=== PATIENT | female | born 1955 | race Hispanic/Latino ===

== ENCOUNTER 2016-12-01 13:08 | Inpatient (IN) | payer MEDICARE ==
[2016-12-01 13:48] LABS: Hematocrit 32.6 % (30.3-42.9); Hemoglobin 10.7 gm/dl (10.1-14.3); Mean Corpuscular HGB Conc 33 % (30-34); Mean Corpuscular Hemoglobin 30 pg (28-32); Mean Corpuscular Volume 91 fl (79-97); Platelet Count 181 K/mm3 (140-440); Red Blood Count 3.58 M/mm3 (3.65-5.03); Red Cell Distribution Width 20.9 % (13.2-15.2); White Blood Count 6.4 K/mm3 (4.5-11.0)
[2016-12-01 13:56] LABS: Anion Gap 18 mmol/L; Blood Urea Nitrogen 18 mg/dL (7-17); Calcium 8.5 mg/dL (8.4-10.2); Carbon Dioxide 21 mmol/L (22-30); Chloride 103.9 mmol/L (98-107); Glucose 106 mg/dL (65-100); Potassium 4.3 mmol/L (3.6-5.0); Sodium 139 mmol/L (137-145)
--- NOTE | 2016-12-01 14:10 | XRay Report ---
Chest 2 views: History: Chest pain. Findings: Normal cardiomediastinal silhouette. Trachea is midline. No consolidation, pneumothorax or pleural effusion. Impression: No acute cardiopulmonary findings.
[2016-12-01] MEDS ORDERED: PROVENTIL IH ONE (14:22)
[2016-12-01] MEDS ORDERED: ATROVENT IH ONE (14:22)
[2016-12-01 14:26] LABS: Basophils % (Manual) 0 % (0.0-1.8); Blastocytes % (Manual) 0 %; Eosinophils % (Manual) 0 % (0.0-4.3)
[2016-12-01 14:27] LABS: Diff Status Complete; Polychromasia 1+; Stomatocytes 1+; Tear Drop Cells Few
[2016-12-01] MEDS ORDERED: DUONEB *Not for PRN Use IH ONE (20:09)
[2016-12-01] MEDS ORDERED: NORCO 5/325 PO ONE (20:09)
[2016-12-01] MEDS ORDERED: DELTASONE PO ONE (20:10)
--- NOTE | 2016-12-01 20:11 | Emergency Department Report ---
ED Chest Pain HPI - General Chief Complaint: Chest Pain Stated Complaint: GEORGE Time Seen by Provider: 12/01/16 19:35 Source: patient Mode of arrival: Ambulatory Limitations: Physical Limitation - History of Present Illness Initial Comments: 61-year-old female past medical history arthritis, COPD, smoker, HIV on HAART presents with complaint of intermittent left-sided chest pain since 11:30 AM this morning. Patient states that she had sharp crampy left-sided chest pain which lasted for several minutes at 11:30 AM. Experienced twice throughout the day with associated shortness of breath. Denies nausea vomiting or diaphoresis. Denies dysuria, increased urinary frequency, abdominal pain. Patient is awake alert and oriented 3 sitting on examination bed comfortably. Currently states she still feels somewhat short of breath. Denies any history of [place] in the past. Also complaining of acute on chronic bilateral knee pain secondary to her arthritis MD Complaint: chest pain Severity scale (0 -10): 1 - Related Data Previous Rx's Medication Instructions Recorded Last Taken Type Ondansetron [Zofran Odt] 4 mg PO Q6H PRN #12 tab.rapdis 01/15/16 Unknown Rx oxyCODONE /ACETAMINOPHEN [Percocet 1 tab PO Q6HR PRN #12 tablet 01/15/16 Unknown Rx 5/325] Allergies Allergy/AdvReac Type Severity Reaction Status Date / Time aspirin Allergy Unknown Verified 12/01/16 13:10 Heart Score - HEART Score History: Moderately suspicious EKG: Non-specific Age: 45-65 Risk factors: 1-2 risk factors Troponin: < normal limit HEART Score: 4 ED Review of Systems ROS: Stated complaint: GEORGE Other details as noted in HPI Constitutional: denies: chills, fever Eyes: denies: eye pain, eye discharge, vision change ENT: denies: ear pain, throat pain Respiratory: wheezing. denies: cough, shortness of breath Cardiovascular: chest pain. denies: palpitations Endocrine: no symptoms reported Gastrointestinal: denies: abdominal pain, nausea, diarrhea Genitourinary: denies: urgency, dysuria, discharge Musculoskeletal: as per HPI, arthralgia. denies: back pain, joint swelling Skin: denies: rash, lesions Neurological: denies: headache, weakness, paresthesias Psychiatric: denies: anxiety, depression Hematological/Lymphatic: denies: easy bleeding, easy bruising ED Past Medical Hx - Past Medical History Hx COPD: Yes Hx HIV: Yes - Surgical History Additional Surgical History: el hip replacements. x2 - Social History Smoking Status: Current Every Day Smoker Substance Use Type: None - Medications Home Medications: Home Medications Medication Instructions Recorded Confirmed Last Taken Type Ondansetron [Zofran Odt] 4 mg PO Q6H PRN #12 tab.rapdis 01/15/16 Unknown Rx oxyCODONE /ACETAMINOPHEN [Percocet 1 tab PO Q6HR PRN #12 tablet 01/15/16 Unknown Rx 5/325] ED Physical Exam - General Limitations: Physical Limitation General appearance: alert, in no apparent distress - Head Head exam: Present: atraumatic, normocephalic - Eye Eye exam: Present: normal appearance, PERRL, EOMI - ENT ENT exam: Present: mucous membranes moist - Neck Neck exam: Present: normal inspection - Respiratory Respiratory exam: Present: wheezes (minor wheezing bilateral lung bases). Absent: respiratory distress - Cardiovascular Cardiovascular Exam: Present: regular rate, normal rhythm. Absent: systolic murmur, diastolic murmur, rubs, gallop - GI/Abdominal GI/Abdominal exam: Present: soft, normal bowel sounds - Extremities Exam Extremities exam: Present: normal inspection - Back Exam Back exam: Present: normal inspection - Neurological Exam Neurological exam: Present: alert, oriented X3 - Psychiatric Psychiatric exam: Present: normal affect, normal mood - Skin Skin exam: Present: warm, dry, intact, normal color. Absent: rash ED Course Vital Signs 12/01/16 12/01/16 12/01/16 13:20 14:26 15:08 Temperature 98.9 F Pulse Rate 92 H Pulse Rate [ 88 92 H Posterior Bilateral Throughout] Respiratory 16 Rate Respiratory 20 20 Rate [Posterior Bilateral Throughout] Blood Pressure 144/87 Blood Pressure 144/87 [Right] O2 Sat by Pulse 99 Oximetry 12/01/16 12/01/16 12/01/16 15:20 17:41 19:00 Temperature 98.6 F 98.5 F Pulse Rate 78 80 Pulse Rate [ Posterior Bilateral Throughout] Respiratory 16 16 Rate Respiratory Rate [Posterior Bilateral Throughout] Blood Pressure Blood Pressure 140/87 138/76 [Right] O2 Sat by Pulse 98 99 98 Oximetry 12/01/16 20:10 Temperature Pulse Rate Pulse Rate [ Posterior Bilateral Throughout] Respiratory 20 Rate Respiratory Rate [Posterior Bilateral Throughout] Blood Pressure Blood Pressure [Right] O2 Sat by Pulse Oximetry APRYL score - Apryl Score Age > 65: (0) No Aspirin use within the Past 7 Days: (0) No 3 or more CAD Risk Factors: (0) No 2 or more Angina events in past 24 hrs: (1) Yes Known CAD with more than 50% Stenosis: (0) No Elevated Cardiac Markers: (0) No ST Deviation Greater than 0.5mm: (0) No APRYL Score: 1 ED Medical Decision Making - Lab Data Result diagrams: 12/01/16 13:24 12/01/16 13:24 - Medical Decision Making A/P: Left-sided anginal chest pain, shortness of breath, COPD exacerbation 1-nebulizer treatments, prednisone 40mg 2-162mg aspirin 3-chest x-ray unremarkable, troponin negative 3, EKG sinus rhythm 4- case discussed with Dr. Bishop and attending hospitalist will admit patient as patient has intermediate HEART score 4 points Moderate Score (4-6 points) Risk of MACE of 12-16.6%. 4-6: 12-16.6% risk of adverse cardiac event. In the HEART Score, these patients were admitted to the hospital. (11.6% retrospective ) (16.6% prospective) Critical care attestation.: If time is entered above; I have spent that time in minutes in the direct care of this critically ill patient, excluding procedure time. ED Disposition Clinical Impression: COPD exacerbation, Left sided chest pain, Angina at rest Disposition: OP ADMIT IP TO THIS HOSP Is pt being admited?: Yes Does the pt Need Aspirin: Yes Condition: Stable Instructions: Chronic Obstructive Pulmonary Disease (ED), Chest Pain (ED) Referrals: PRIMARY CARE,MD [Primary Care Provider] - 3-5 Days
[2016-12-01] MEDS ORDERED: BABY ASPIRIN PO ONE (20:15)
[2016-12-01 20:27] LABS: Creatine Kinase MB 5.9 ng/mL (0.0-4.0)
[2016-12-01 20:41] LABS: Bilirubin,Urine NEG (Negative); Blood,Urine NEG (Negative); Ketones,Urine NEG (Negative); Leukocyte Esterase,Urine NEG (Negative); Nitrite,Urine NEG (Negative); Protein,Urine <15 mg/dL mg/dL (Negative); RBC,Urine < 1.0 /HPF (0.0-6.0); Urobilinogen,Urine < 2.0 mg/dL (<2.0)
[2016-12-01] MEDS ORDERED: ZOFRAN ODT PO PRN (21:51)
[2016-12-01] MEDS ORDERED: PERCOCET 5/325 PO PRN ×2 (21:51→22:11)
[2016-12-01] MEDS ORDERED: MORPHINE IV PRN (21:53)
[2016-12-01] MEDS ORDERED: SODIUM CHLORIDE FLUSH SYRINGE 10 ML IV PRN (21:53)
--- NOTE | 2016-12-01 21:59 | History and Physical Report ---
History of Present Illness Date of examination: 12/01/16 Chief complaint: Chest pain History of present illness: 61-year-old female with past medical history significant for COPD, arthritis, HIV presented to the emergency department complaining of left-sided chest pain that started around 11 AM. Chest Pain as a squeezing, 10 out of 10, with no radiation, associated with shortness of breath. Patient has history of COPD and she is on steroids that has been discontinued a week ago. Patient's complaining swelling of the face and the leg that she associated with use of steroids. Patient didn't have any cardiac workup previously. Patient is admitted for further workup and management. REVIEW OF SYSTEMS: GENERAL: no weight change, no fatigue, no fever HEAD: no head ache EYES: no blurry vision, no acute visual loss EARS: no hearing loss, no discharge, no earache NOSE: no stuffiness, no sneezing, no discharge MOUTH, THROAT AND NECK: no bleeding gums, no sore throat, no swollen neck CARDIAC: As stated in the HPI. RESPIRATORY: As stated in the HPI. GI: no decreased appetite, no nausea, no vomiting, no dysphagia, no diarrhea, no constipation, no abdominal pain URINARY: no change in frequency, no urgency, no polyuria, no hematuria, no incontinence MUSCULOSKELETAL: Complaining bilateral knee pain. NEUROLOGIC: no loss of sensation/numbness, no tingling, no tremors, no weakness/ paralysis HEMATOLOGIC: no anemia, no easy bruising SKIN: no rashes ENDOCRINE: no heat/cold intolerance, no polyuria, no polydipsia, no thyroid problems, no diabetes PSYCHIATRIC: no anxiety, no depression, no suicidal ideations Past History Past Medical History: arthritis, hyperlipidemia, other (HIV) Past Surgical History: total hip replacement Social history: full code. denies: smoking, alcohol abuse, prescription drug abuse, IV drug use Family history: CAD (father and brother), stroke (brother) Medications and Allergies Allergies Allergy/AdvReac Type Severity Reaction Status Date / Time aspirin Allergy Unknown Verified 12/01/16 13:10 Home Medications Medication Instructions Recorded Confirmed Last Taken Type Ondansetron [Zofran Odt] 4 mg PO Q6H PRN #12 tab.rapdis 01/15/16 Unknown Rx oxyCODONE /ACETAMINOPHEN [Percocet 1 tab PO Q6HR PRN #12 tablet 01/15/16 Unknown Rx 5/325] Active Meds: Active Medications Albuterol (Proventil) 2.5 mg IH QIDRT RONALD Aspirin (Ecotrin) 325 mg PO QDAY RONALD Docusate Sodium (Colace) 100 mg PO BID RONALD Enoxaparin Sodium (Lovenox) 40 mg SUB-Q QDAY RONALD Famotidine (Pepcid) 20 mg PO BID RONALD Morphine Sulfate (Morphine) 2 mg IV Q4H PRN PRN Reason: Chest Pain Ondansetron HCl (Zofran Odt) 4 mg PO Q6H PRN PRN Reason: Nausea Oxycodone/Acetaminophen (Percocet 5/325) 1 tab PO Q6HR PRN PRN Reason: Pain Simvastatin (Zocor) 20 mg PO QHS RONALD Sodium Chloride (Sodium Chloride Flush Syringe 10 Ml) 10 ml IV PRN PRN PRN Reason: LINE FLUSH Exam - Physical Exam Narrative exam: Not in cardiopulmonary distress. The patient appeared well nourished and normally developed. Vital signs as documented. Head exam is unremarkable. No scleral icterus . Neck is without jugular venous distension, thyromegaly, or carotid bruits. Lungs scattered wheezing. Cardiac exam reveals regular rate and Rhythm. First and second heart sounds normal. No murmurs, rubs or gallops. Abdominal exam reveals normal bowel sounds, no masses, no organomegaly and no aortic enlargement. Extremities are nonedematous and both femoral and pedal pulses are normal. [employer]: Alert and oriented 3. No focal weakness. - Constitutional Vitals: Temp Pulse Resp BP Pulse Ox 98.5 F 80 20 138/76 98 12/01/16 17:41 12/01/16 17:41 12/01/16 20:10 12/01/16 17:41 12/01/16 19:00 Results - Labs CBC & Chem 7: 12/01/16 13:24 12/01/16 13:24 Labs: Laboratory Last Values WBC 6.4 K/mm3 (4.5-11.0) 12/01/16 13:24 RBC 3.58 M/mm3 (3.65-5.03) L 12/01/16 13:24 Hgb 10.7 gm/dl (10.1-14.3) 12/01/16 13:24 Hct 32.6 % (30.3-42.9) 12/01/16 13:24 MCV 91 fl (79-97) 12/01/16 13:24 MCH 30 pg (28-32) 12/01/16 13:24 MCHC 33 % (30-34) 12/01/16 13:24 RDW 20.9 % (13.2-15.2) H 12/01/16 13:24 Plt Count 181 K/mm3 (140-440) 12/01/16 13:24 Add Manual Diff Complete 12/01/16 13:24 Total Counted 100 12/01/16 13:24 Seg Neuts % (Manual) 65.0 % (40.0-70.0) 12/01/16 13:24 Band Neutrophils % 2.0 % 12/01/16 13:24 Lymphocytes % (Manual) 30.0 % (13.4-35.0) 12/01/16 13:24 Reactive Lymphs % (Man) 0 % 12/01/16 13:24 Monocytes % (Manual) 3.0 % (0.0-7.3) 12/01/16 13:24 Eosinophils % (Manual) 0 % (0.0-4.3) 12/01/16 13:24 Basophils % (Manual) 0 % (0.0-1.8) 12/01/16 13:24 Metamyelocytes % 0 % 12/01/16 13:24 Myelocytes % 0 % 12/01/16 13:24 Promyelocytes % 0 % 12/01/16 13:24 Blast Cells % 0 % 12/01/16 13:24 Nucleated RBC % 4.0 % (0.0-0.9) H 12/01/16 13:24 Seg Neutrophils # Man 4.2 K/mm3 (1.8-7.7) 12/01/16 13:24 Band Neutrophils # 0.1 K/mm3 12/01/16 13:24 Lymphocytes # (Manual) 1.9 K/mm3 (1.2-5.4) 12/01/16 13:24 Abs React Lymphs (Man) 0.0 K/mm3 12/01/16 13:24 Monocytes # (Manual) 0.2 K/mm3 (0.0-0.8) 12/01/16 13:24 Eosinophils # (Manual) 0.0 K/mm3 (0.0-0.4) 12/01/16 13:24 Basophils # (Manual) 0.0 K/mm3 (0.0-0.1) 12/01/16 13:24 Metamyelocytes # 0.0 K/mm3 12/01/16 13:24 Myelocytes # 0.0 K/mm3 12/01/16 13:24 Promyelocytes # 0.0 K/mm3 12/01/16 13:24 Blast Cells # 0.0 K/mm3 12/01/16 13:24 WBC Morphology Not Reportable 12/01/16 13:24 Hypersegmented Neuts Not Reportable 12/01/16 13:24 Hyposegmented Neuts Not Reportable 12/01/16 13:24 Hypogranular Neuts Not Reportable 12/01/16 13:24 Smudge Cells Not Reportable 12/01/16 13:24 Toxic Granulation Not Reportable 12/01/16 13:24 Toxic Vacuolation Not Reportable 12/01/16 13:24 Dohle Bodies Not Reportable 12/01/16 13:24 Pelger-Huet Anomaly Not Reportable 12/01/16 13:24 Nico Rods Not Reportable 12/01/16 13:24 Platelet Estimate Appears normal 12/01/16 13:24 Clumped Platelets Not Reportable 12/01/16 13:24 Plt Clumps, EDTA Not Reportable 12/01/16 13:24 Large Platelets Not Reportable 12/01/16 13:24 Giant Platelets Not Reportable 12/01/16 13:24 Platelet Satelliting Not Reportable 12/01/16 13:24 Plt Morphology Comment Not Reportable 12/01/16 13:24 RBC Morphology Not Reportable 12/01/16 13:24 Dimorphic RBCs Not Reportable 12/01/16 13:24 Polychromasia 1+ 12/01/16 13:24 Hypochromasia Not Reportable 12/01/16 13:24 Poikilocytosis Not Reportable 12/01/16 13:24 Anisocytosis Not Reportable 12/01/16 13:24 Microcytosis Not Reportable 12/01/16 13:24 Macrocytosis Not Reportable 12/01/16 13:24 Spherocytes Not Reportable 12/01/16 13:24 Pappenheimer Bodies Not Reportable 12/01/16 13:24 Sickle Cells Not Reportable 12/01/16 13:24 Target Cells Not Reportable 12/01/16 13:24 Tear Drop Cells Few 12/01/16 13:24 Ovalocytes Not Reportable 12/01/16 13:24 Stomatocytes 1+ 12/01/16 13:24 Helmet Cells Not Reportable 12/01/16 13:24 Leyva-Newhope Bodies Not Reportable 12/01/16 13:24 [place] Rings Not Reportable 12/01/16 13:24 [place] Cells Not Reportable 12/01/16 13:24 Bite Cells Not Reportable 12/01/16 13:24 Crenated Cell Not Reportable 12/01/16 13:24 Elliptocytes Not Reportable 12/01/16 13:24 Acanthocytes (Spur) Not Reportable 12/01/16 13:24 Rouleaux Not Reportable 12/01/16 13:24 Hemoglobin C Crystals Not Reportable 12/01/16 13:24 Schistocytes Not Reportable 12/01/16 13:24 Malaria parasites Not Reportable 12/01/16 13:24 Binu Bodies Not Reportable 12/01/16 13:24 Hem Pathologist Commnt No 12/01/16 13:24 D-Dimer < 135.00 ng/mlDDU (0-234) 12/01/16 13:29 Sodium 139 mmol/L (137-145) 12/01/16 13:24 Potassium 4.3 mmol/L (3.6-5.0) 12/01/16 13:24 Chloride 103.9 mmol/L (98-107) 12/01/16 13:24 Carbon Dioxide 21 mmol/L (22-30) L 12/01/16 13:24 Anion Gap 18 mmol/L 12/01/16 13:24 BUN 18 mg/dL (7-17) H 12/01/16 13:24 Creatinine 0.5 mg/dL (0.7-1.2) L 12/01/16 13:24 Estimated GFR > 60 ml/min 12/01/16 13:24 BUN/Creatinine Ratio 36.00 % 12/01/16 13:24 Glucose 106 mg/dL (65-100) H 12/01/16 13:24 Calcium 8.5 mg/dL (8.4-10.2) 12/01/16 13:24 Total Creatine Kinase 84 units/L (30-135) 12/01/16 18:30 CK-MB (CK-2) 5.9 ng/mL (0.0-4.0) H 12/01/16 18:30 Troponin T < 0.010 ng/mL (0.00-0.029) 12/01/16 18:30 Urine Color Straw (Yellow) 12/01/16 20:26 Urine Turbidity Clear (Clear) 12/01/16 20:26 Urine pH 6.0 (5.0-7.0) 12/01/16 20:26 Ur Specific [place] 1.008 (1.003-1.030) 12/01/16 20:26 Urine Protein <15 mg/dl mg/dL (Negative) 12/01/16 20:26 Urine Glucose (UA) Neg mg/dL (Negative) 12/01/16 20:26 Urine Ketones Neg mg/dL (Negative) 12/01/16 20:26 Urine Blood Neg (Negative) 12/01/16 20:26 Urine Nitrite Neg (Negative) 12/01/16 20:26 Urine Bilirubin Neg (Negative) 12/01/16 20:26 Urine Urobilinogen < 2.0 mg/dL (<2.0) 12/01/16 20:26 Ur Leukocyte Esterase Neg (Negative) 12/01/16 20:26 Urine WBC (Auto) 1.0 /HPF (0.0-6.0) 12/01/16 20:26 Urine RBC (Auto) < 1.0 /HPF (0.0-6.0) 12/01/16 20:26 U Epithel Cells (Auto) < 1.0 /HPF (0-13.0) 12/01/16 20:26 - Imaging and Cardiology EKG: image reviewed (normal sinus rhythm) Chest x-ray: image reviewed (no acute cardiothoracic abnormality identified) Assessment and Plan Assessment and plan: Chest pain -3 sets of troponin were negative, EKG normal sinus rhythm - Stress test tomorrow - Cardiac monitoring - Continue statin, start on aspirin - patient is allergic to high-dose of aspirin , she specifically stated if it is more than 400mg COPD - On no preventative treatment, steroid, oxygen support HIV - We'll continue home medications Osteoarthritis - Pain control Resume appropriate home medications DVT prophylaxis - Lovenox Disposition - Admit to telemetry floor. Advance Directives: Yes VTE prophylaxis?: Chemical Plan of care discussed with patient/family: Yes
[2016-12-01] MEDS ORDERED: ZOCOR PO SCH (22:00)
[2016-12-01] MEDS: PEPCID PO SCH (22:05)
[2016-12-01] MEDS: COLACE PO SCH (22:05)
[2016-12-02 00:14] LABS: Hematocrit 35.5 % (30.3-42.9); Hemoglobin 11.3 gm/dl (10.1-14.3); Mean Corpuscular HGB Conc 32 % (30-34); Mean Corpuscular Hemoglobin 29 pg (28-32); Mean Corpuscular Volume 92 fl (79-97); Platelet Count 201 K/mm3 (140-440); Red Blood Count 3.87 M/mm3 (3.65-5.03); White Blood Count 6.3 K/mm3 (4.5-11.0)
[2016-12-02 00:16] LABS: Blood Urea Nitrogen 15 mg/dL (7-17); Calcium 8.6 mg/dL (8.4-10.2); Carbon Dioxide 22 mmol/L (22-30); Chloride 99.6 mmol/L (98-107); Glucose 108 mg/dL (65-100); Potassium 4.1 mmol/L (3.6-5.0); Red Cell Distribution Width 20.8 % (13.2-15.2); Sodium 136 mmol/L (137-145)
[2016-12-02 00:17] LABS: Anion Gap 19 mmol/L
[2016-12-02 02:48] LABS: Anisocytosis 1+; Basophils % (Manual) 0 % (0.0-1.8); Blastocytes % (Manual) 0 %; Eosinophils % (Manual) 0 % (0.0-4.3); Hypochromasia Few; Polychromasia Few; Tear Drop Cells Rare
[2016-12-02 02:49] LABS: Diff Status Complete
[2016-12-02] MEDS: PROVENTIL IH SCH ×2 (08:27→13:10)
[2016-12-02] MEDS ORDERED: LEXISCAN IV ONE ×2 (09:22→09:25)
[2016-12-02] MEDS ORDERED: LOVENOX SUB-Q SCH (10:00)
[2016-12-02] MEDS ORDERED: DELTASONE PO SCH (10:00)
[2016-12-02] MEDS ORDERED: ECOTRIN PO SCH (10:00)
[2016-12-02] MEDS: PEPCID PO SCH (11:33)
[2016-12-02] MEDS: COLACE PO SCH (11:33)
--- NOTE | 2016-12-02 15:38 | Discharge Summary ---
Providers - Providers Date of Admission: 12/01/16 21:49 Date of discharge: 12/02/16 Attending physician: MONY RADFORD 12/01/16 Consult to Cardiac Rehabilitation [CONS] Routine Reason For Exam: Phase I Primary care physician: HYDRAMATIC SPECIALIST Hospitalization Condition: Stable Hospital course: Presented with CP, stress test negative, had acute bronchitis, couple weeks prior to arrival. -CP due to costochondritis and post viral pleurisy -COPD chronic -OA wants norco 10, has appointment w/ pain management pcp dr. Davies Disposition: DC-01 TO HOME OR SELFCARE Time spent for discharge: 36 minutes Core Measure Documentation - Palliative Care Palliative Care/ Comfort Measures: Not Applicable - Core Measures Any of the following diagnoses?: none - VTE Discharge Requirements Deep Vein Thrombosis/Pulmonary Embolism Present on Admission: No Has pt received <5 days of overlap therapy or INR<2.0: No Anticoagulant overlap therapy prescribed at discharge: No Contraindication No Overlap Therapy order at DC: Not Indicated Exam - Constitutional Vitals: Temp Pulse Resp BP Pulse Ox 97.7 F 86 2 L 146/84 95 12/02/16 11:47 12/02/16 11:47 12/02/16 11:47 12/02/16 11:47 12/02/16 11:47 General appearance: Present: no acute distress - Neck Neck: Present: supple, normal ROM - Respiratory Respiratory effort: normal Respiratory: bilateral: wheezing (but good air entry) - Cardiovascular Rhythm: regular Heart Sounds: Present: S1 & S2 - Extremities Extremities: no ischemia, pulses intact Peripheral Pulses: within normal limits - Abdominal General gastrointestinal: Present: soft, non-tender, non-distended, normal bowel sounds - Integumentary Integumentary: Present: clear, warm. Absent: jaundice - Musculoskeletal Musculoskeletal: strength equal bilaterally - Psychiatric Psychiatric: appropriate mood/affect - Neurologic Neurologic: CNII-XII intact, no focal deficits, moves all extremities - Allied Health Allied health notes reviewed: nursing Plan Activity: other (no strenous activity until cleared by pcp) Diet: low salt Follow up with: PRIMARY CARE, [Primary Care Provider] - 3-5 Days Prescriptions: Simvastatin [Zocor TAB] 20 mg PO QHS #30 tablet Ondansetron [Zofran ODT TAB] 4 mg PO Q6H PRN #7 day PRN Reason: Nausea oxyCODONE /ACETAMINOPHEN [Percocet 5/325 mg] 1 tab PO Q6H PRN #30 tablet PRN Reason: Pain , Severe (7-10) predniSONE [Deltasone] 40 mg PO QDAY #30 day ALBUTEROL NEB's [Proventil 0.083% NEBS] 2.5 mg IH QIDRT PRN #30 day PRN Reason: Shortness Of Breath
[2016-12-02 15:41] VITALS: BP 154/83
--- NOTE | 2016-12-03 04:37 | Treadmill Report ---
THALLIUM STRESS TEST LEFT VENTRICLE: Left ventricular chamber size is within normal. Perfusion study demonstrates homogeneous uptake of the tracer in all segments. No significant perfusion defects identified. Normal apical thinning is noted. Gated analysis demonstrates normal left ventricular systolic function, ejection fraction is greater than 70%. CONCLUSION: Normal myocardial perfusion study. JOB# [id number] CA/NTS
== END 2016-12-02 16:50 | disposition home or self-care (01) | DRG 206 ==
LOC: ED 13:08 → 4A 21:49
PROVIDERS: ADMIT Internal Medicine; ATTEND Internal Medicine
DX: M94.0 Chondrocostal junction syndrome [Tietze] (principal); J44.0 Chronic obstructive pulmonary disease with (acute) lower respiratory infection; J44.1 Chronic obstructive pulmonary disease with (acute) exacerbation; R09.1 Pleurisy; M19.90 Unspecified osteoarthritis, unspecified site; Z88.6 Allergy status to analgesic agent; F17.200 Nicotine dependence, unspecified, uncomplicated; Z96.643 Presence of artificial hip joint, bilateral; E78.5 Hyperlipidemia, unspecified; Z82.3 Family history of stroke; Z82.49 Family history of ischemic heart disease and other diseases of the circulatory system; J20.9 Acute bronchitis, unspecified
CPT/HCPCS: 36415; 71020; 78452; 80048; 81001; 82550; 82553; 84484; 85007; 85025; 85379; 93005; 93010; 93017; 94640; 94644; 99285; A9502; J1650; J2270; J2785; J7512; Q0162

== ENCOUNTER 2017-05-26 12:33 | Outpatient (CLI) | payer MEDICARE ==
--- NOTE | 2017-05-26 13:37 | XRay Report ---
CHEST XRAY, 2 VIEWS: History: Preop evaluation. Findings: There is mild diffuse interstitial coarsening. The lungs are hyperexpanded but clear. No infiltrate, pleural fluid or pneumothorax is detected. The cardiac silhouette and pulmonary vasculature are within normal limits for technique. The bony thorax is unremarkable. IMPRESSION: Changes consistent with mild COPD. No acute cardiopulmonary process.
== END 2017-05-26 12:34 | disposition home or self-care (01) ==
LOC: XRAY 12:33
PROVIDERS: ATTEND Family Medicine
DX: Z01.818 Encounter for other preprocedural examination (principal)
CPT/HCPCS: 71046; 93005; 93010